=== PATIENT | female | born 1950 | race Caucasian/White ===

== ENCOUNTER 2018-05-03 13:24 | Emergency (ER) | payer MEDICARE, OTHER ==
--- NOTE | 2018-05-03 14:22 | XRAY Report ---
Reason: fall, shouler pain Procedure Date: 05/03/2018 Accession Number: [id number] / [id number] Procedure: XR - Shoulder 3 View RT CPT Code: FULL RESULT: EXAM: RIGHT SHOULDER RADIOGRAPHY EXAM DATE: 05/03/2018 02:11 PM. CLINICAL HISTORY: Fall, right shoulder pain. COMPARISON: None. TECHNIQUE: 3 views. FINDINGS: Bones: Motion artifact mildly degrades diagnostic quality of transscapular Y view. No fracture. Joints: Mild glenohumeral and acromioclavicular osteoarthritis. Soft tissues: 1 mm calcification adjacent to the humeral head most consistent with trace calcific tendinitis. IMPRESSION: No fracture RADIA
[2018-05-03] MEDS ORDERED: NAPROXEN 250 MG TABLET PO STA (14:25)
[2018-05-03] MEDS ORDERED: HYDROcod/ACETAM 5/325 MG TABLET PO STA (14:25)
--- NOTE | 2018-05-03 14:27 | ED Physician Documentation ---
PD HPI UPPER EXT INJURY - Stated complaint Stated Complaint: R SHOULDER INJ - Chief complaint Chief Complaint: Abd Pain - History obtained from History obtained from: Patient - History of Present Illness Location: Right, Shoulder Type of injury: Fall, Blunt / blow Timing - onset: Today Timing - details: Abrupt onset Severity Comments: moderate Improved by: Rest, Immobilization Worsened by: Moving Associated symptoms: No: Weakness, Swelling, Discolored Contributing factors: No: Prosthetic joint Similar symptoms before: No diagnosis Recently seen: Not recently seen Review of Systems Constitutional: denies: Fever Cardiac: denies: Chest pain / pressure GI: denies: Abdominal Pain Skin: denies: Laceration (s) Musculoskeletal: reports: Extremity pain, Joint pain. denies: Neck pain, Extremity swelling, Joint swelling Neurologic: denies: Syncope PD PAST MEDICAL HISTORY - Present Medications Home Medications: Ambulatory Orders Medication Instructions Recorded Confirmed Atenolol 50 mg PO 05/03/18 Meloxicam 7.5 mg PO 05/03/18 - Allergies Allergies/Adverse Reactions: Allergies Allergy/AdvReac Type Severity Reaction Status Date / Time acetaminophen [From Percocet] Allergy Rash Verified 05/03/18 13:51 clindamycin [From Cleocin] Allergy Rash Verified 05/03/18 14:23 oxycodone Allergy Rash Verified 05/03/18 14:22 PD ED PE NORMAL - General General: Alert and oriented X 3 - HEENT HEENT: Atraumatic, PERRL, EOMI, Ears normal - Neck Neck: No bony TTP - Derm Derm: Normal color - Extremities Extremities: No deformity. No: No tenderness to palpate (The patient has tenderness to palpation in the right shoulder, there is no tenderness along the clavicle or along the humerus, elbow or wrist or hand. The patient has normal range of motion of the elbow and wrist and hand. Normal radial pulse. No crepitus.), Normal ROM s pain, No edema - Neuro Neuro: Alert and oriented X 3, Normal speech - Psych Psych: Normal mood Results - Vitals Vitals: Vital Signs - 24 hr 05/03/18 13:49 Temperature 36.1 C L Heart Rate 68 Respiratory 16 Rate Blood Pressure 146/87 H O2 Saturation 99 Oxygen O2 Source Room air - Rads (name of study) Shoulder Radiology: Final report received, See rad report PD MEDICAL DECISION MAKING - ED course ED course: I discussed with the patient the findings on her x-ray, the patient be placed in a sling. I advised that the patient should follow-up with primary care in 1 week for recheck and reevaluation of her injury. I advised that she may need a referral to orthopedics, physical therapy and possibly an outpatient MRI if her symptoms are not improving. The patient understands and agrees. I discussed warning signs and recommended returning to the emergency department immediately for any worsening or any concerns. Departure - Departure Disposition: 01 Home, Self Care Clinical Impression: Shoulder contusion Qualifiers: Encounter type: initial encounter Laterality: unspecified laterality Qualified Code(s): S40.019A - Contusion of unspecified shoulder, initial encounter Condition: Good Instructions: ED Contusion Shoulder Comments: Please follow-up with your primary care physician for recheck and reevaluation. You may need a referral to orthopedics for reevaluation or possibly an outpatient MRI. Please return to the emergency department immediately for any worsening or any concerns.
[2018-05-03 15:03] VITALS: BP 135/89
== END 2018-05-03 14:59 | disposition home or self-care (01) ==
LOC: ED 13:24
DX: S40.019A Contusion of unspecified shoulder, initial encounter (principal); W10.8XXA Fall (on) (from) other stairs and steps, initial encounter; Y92.029 Unspecified place in mobile home as the place of occurrence of the external cause
CPT/HCPCS: 73030; 99283; A9270